=== PATIENT | female | born 1990 | race Two or more races ===

== ENCOUNTER 2019-06-10 06:12 | Emergency (ER) | payer SELFPAY ==
[2019-06-10 06:32] LABS: BILIRUBIN,URINE NEGATIVE (NEGATIVE); GLUCOSE, URINE (UA) NEGATIVE (NEGATIVE); KETONES,URINE (UA) NEGATIVE (NEGATIVE); LEUKOCYTE ESTERASE, URINE NEGATIVE (NEGATIVE); NITRITE,URINE NEGATIVE (NEGATIVE); OCCULT BLOOD,URINE LARGE (NEGATIVE); PH,URINE 5.5 PH (5.0-7.5); PROTEIN,URINE NEGATIVE (NEGATIVE); UROBILINOGEN,URINE 0.2 (NORMAL) E.U./dL (NORMAL)
[2019-06-10 06:33] LABS: CLARITY,URINE CLEAR (CLEAR)
[2019-06-10 06:34] LABS: HCG UR QUAL NEGATIVE
[2019-06-10 06:38] LABS: BACTERIA,URINE Few /HPF (None Seen); MUCUS,URINE Marked Strands; SQUAMOUS EPITHELIAL CELL,UR MANY Squamous (<= Few)
[2019-06-10 06:53] LABS: BASOPHILS # (AUTO) 0.1 10^3/uL (0.0-0.1); BASOPHILS % (AUTO) 1.2 %; EOSINOPHILS # (AUTO) 0.5 10^3/uL (0.0-0.7); EOSINOPHILS % (AUTO) 5.3 %; HGB - HEMOGLOBIN 9.6 g/dL (12.0-16.0); LYMPHOCYTES # (AUTO) 1.6 10^3/uL (1.5-3.5); LYMPHOCYTES % (AUTO) 18.9 %; MEAN PLATELET VOLUME 11.7 fL (7.9-10.8); MONOCYTES # (AUTO) 0.6 10^3/uL (0.0-1.0); MONOCYTES % (AUTO) 7.2 %; NEUTROPHILS # (AUTO) 5.7 10^3/uL (1.5-6.6); NEUTROPHILS % (AUTO) 67.2 %; PLT - PLATELET COUNT 363 10^3/uL (130-450); RED BLOOD COUNT 4.57 10^6/uL (4.20-5.40); RED CELL DISTRIBUTION WIDTH 18.3 % (12.0-15.0); WHITE BLOOD COUNT 8.5 x10^3/uL (4.8-10.8)
[2019-06-10 07:09] LABS: ALBUMIN/GLOBULIN RATIO 1.1 (1.0-2.2); BILIRUBIN,TOTAL 0.7 mg/dL (0.2-1.0); CALCIUM 8.6 mg/dL (8.5-10.3); CREATININE 0.8 mg/dL (0.4-1.0); TOTAL PROTEIN 7.6 g/dL (6.7-8.2)
--- NOTE | 2019-06-10 07:09 | ED Physician Documentation ---
History of Present Illness - Stated complaint Stated Complaint: SIDE PX/VOMITING - Chief complaint Chief Complaint: Abd Pain - Additonal information Additional information: This is a 28-year-old female who presents with left-sided abdominal pain which is now resolved. Patient woke up this morning and she developed some sharp pain in the left side that radiated down towards her front of her abdomen. She did have some nausea and vomiting associated with this. Her symptoms have now resolved, and she is feeling much better. She states she has a history of known gallstones, but denies any pain in right upper quadrant. No fever. Review of Systems Constitutional: denies: Fever Nose: denies: Rhinorrhea / runny nose Cardiac: denies: Chest pain / pressure Respiratory: denies: Dyspnea GI: reports: Abdominal Pain, Nausea, Vomiting : denies: Dysuria Skin: denies: Rash PD PAST MEDICAL HISTORY - Past Medical History Past Medical History: No Cardiovascular: None Respiratory: None Neuro: None Endocrine/Autoimmune: None GI: None PRODUCT SUPPORT REPRESENTATIVE: None : None HEENT: None Psych: None Musculoskeletal: None Derm: None - Past Surgical History Past Surgical History: No - Present Medications Home Medications: Ambulatory Orders Medication Instructions Recorded Confirmed No Known Home Medications 06/10/19 06/10/19 - Allergies Allergies/Adverse Reactions: Allergies Allergy/AdvReac Type Severity Reaction Status Date / Time No Known Drug Allergies Allergy Verified 06/10/19 06:24 - Social History Does the pt smoke?: No Smoking Status: Never smoker Does the pt drink ETOH?: No Does the pt have substance abuse?: No - Immunizations Immunizations are current?: No - POLST Patient has POLST: No PD ED PE NORMAL - Vitals Vital signs reviewed: Yes - General General: Alert and oriented X 3, No acute distress - HEENT HEENT: PERRL - Neck Neck: Supple, no meningeal sign - Cardiac Cardiac: RRR, No murmur - Respiratory Respiratory: Clear bilaterally - Abdomen Abdomen: Normal bowel sounds, Soft, Non tender, Non distended - Derm Derm: Warm and dry - Extremities Extremities: No deformity - Neuro Neuro: Alert and oriented X 3 - Psych Psych: Normal mood, Normal affect Results - Vitals Vitals: Vital Signs - 24 hr 06/10/19 06/10/19 06:21 07:28 Temperature 36.7 C Heart Rate 58 L 70 Respiratory 17 15 Rate Blood Pressure 118/77 112/77 O2 Saturation 100 100 Oxygen O2 Source Room air - Labs Labs: Laboratory Tests 06/10/19 06/10/19 06/10/19 06:30 06:40 06:40 WBC 8.5 RBC 4.57 Hgb 9.6 L Hct 32.0 L MCV 70.0 L MCH 21.0 L MCHC 30.0 L RDW 18.3 H Plt Count 363 MPV 11.7 H Neut # (Auto) 5.7 Lymph # (Auto) 1.6 [place] # (Auto) 0.6 Eos # (Auto) 0.5 Baso # (Auto) 0.1 Absolute Nucleated RBC 0.00 Nucleated RBC % 0.0 Sodium 138 Potassium 3.8 Chloride 105 Carbon Dioxide 25 Anion Gap 8.0 BUN 10 Creatinine 0.8 Estimated GFR (MDRD) 85 L Glucose 97 Calcium 8.6 Total Bilirubin 0.7 AST 19 ALT 13 Alkaline Phosphatase 53 Total Protein 7.6 Albumin 4.0 Globulin 3.6 Albumin/Globulin Ratio 1.1 Lipase 28 Urine Color YELLOW Urine Clarity CLEAR Urine pH 5.5 Ur Specific [place] >=1.030 H Urine Protein NEGATIVE Urine Glucose (UA) NEGATIVE Urine Ketones NEGATIVE Urine Occult Blood LARGE H Urine Nitrite NEGATIVE Urine Bilirubin NEGATIVE Urine Urobilinogen 0.2 (NORMAL) Ur Leukocyte Esterase NEGATIVE Urine RBC 6-10 H Urine WBC 0-3 Ur Squamous Epith Cells MANY Squamous H Urine Bacteria Few Urine Mucus Marked Strands Ur Microscopic Review INDICATED Urine Culture Comments NOT INDICATED Urine HCG, Qual NEGATIVE - Rads (name of study) CT abd/pelvis Radiology: Other (No acute abnormalities, there is cholelithiasis. No appendicitis, no ovarian masses.) PD MEDICAL DECISION MAKING - ED course Complexity details: considered differential (UTI, nephrolithiasis, gastroenteritis, diverticulitis, ovarian torsion, appendicitis, cholecystitis) ED course: On my examination patient is well-appearing with a benign abdominal exam. Her labs are unrevealing with no LFT elevations, no leukocytosis. Her urine does show some red blood cells, no signs of infection. CT of the abdomen/pelvis shows a nonobstructing punctuate left nephrolithiasis, and a small stone which is thought to be potentially a phlebolith just posterior to the bladder. I reevaluated the patient who is feeling well, has no further pain or nausea, Is tolerating p.o., and has stable vital signs. I discussed the results of her studies, explained that I do not have a clear extension for her symptoms, however given the acuity of the pain that then completely resolved is possible that she passed a kidney stone. Given that there are no ovarian masses seen, the pain is resolved, I doubt ovarian torsion, but I discussed that if her pain returns or she is a having other concerning symptoms she should return for reevaluation. I also discussed that she is cholelithiasis, but she has no right upper quadrant tenderness today, no signs of cholecystitis. I further discussed her anemia and recommended follow-up with the primary care provider. Patient agrees and was discharged home in the care of her father. Departure - Departure Disposition: Home, Self Care Clinical Impression: Abdominal pain Qualifiers: Abdominal location: left lower quadrant Qualified Code(s): R10.32 - Left lower quadrant pain Condition: Good Instructions: ED Abdominal Pain Unkn Cause Follow-Up: Madiha Sosa PA-C [Primary Care Provider] - Comments: You were seen today for abdominal pain. Your urine test did show some red blood cells, which may be due to a kidney stone which may now be passed. Your CT scan did not show an obvious cause of your pain today. You do have gallstones, and you should follow-up with a surgeon to discuss removal of your gallbladder. You also have an anemia, and should follow-up with your primary care provider on this. If you are having worsening pain, persistent vomiting, or other concerning symptoms please return to the emergency department. Discharge Date/Time: 06/10/19 08:21
[2019-06-10] MEDS ORDERED: KETOROLAC 30 MG/ML VIAL IVP STA (07:15)
[2019-06-10] MEDS ORDERED: LACTATED RINGERS 1,000 ML IV STA (07:15)
[2019-06-10] MEDS ORDERED: ONDANSETRON 4 MG/2 ML VIAL IVP STA (07:15)
[2019-06-10 07:29] VITALS: BP 112/77
--- NOTE | 2019-06-10 07:34 | CT Report ---
Reason: left flank pain, hematuria Procedure Date: 06/10/2019 Accession Number: [id number] / [id number] Procedure: CT - Abdomen/Pelvis WO CPT Code: Final Report FULL RESULT: EXAM: CT ABDOMEN AND PELVIS (CT KUB) EXAM DATE: 06/10/2019 07:01 AM. CLINICAL HISTORY: Left flank pain, hematuria. COMPARISONS: None. TECHNIQUE: Routine axial helical CT imaging was performed through the abdomen and pelvis without IV contrast. Reconstructions: Coronal and sagittal. In accordance with CT protocol optimization, one or more of the following dose reduction techniques were utilized for this exam: automated exposure control, adjustment of mA and/or KV based on patient size, or use of iterative reconstructive technique. FINDINGS: Lung Bases: Unremarkable. Right Kidney/Ureter: No stones, hydronephrosis, or hydroureter. No perinephric fat stranding. Left Kidney/Ureter: There is a punctate nonobstructing nephrolith in the midpole left kidney. No hydronephrosis. No left ureteral calculi. Other Solid Organs: Noncontrast images of the solid organs are grossly unremarkable. Gallbladder/Bile Ducts: Several gallstones noted, the largest measuring 2.3 cm. Peritoneal Cavity: No free fluid, free air or nelly adenopathy. Bowel is grossly unremarkable. No evidence of appendicitis. Pelvic Organs: No bladder stones or wall thickening. Noncontrast images of the visualized pelvic organs are unremarkable. The urinary bladder is empty, somewhat limiting evaluation. There is a 2 mm calculus midline lower pelvis that appears to be caudal to the empty urinary bladder and suspected to be a phlebolith. Vasculature: Unremarkable. Other: None. IMPRESSION: No right-sided urinary tract stones or obstruction. Punctate nonobstructing left nephrolith. No evidence of appendicitis. No cystic or mass lesions detected in either adnexa. There is a 2 mm calculus midline lower pelvis, that appears to be caudal to the empty urinary bladder and suspected to be a phlebolith. [facility]
== END 2019-06-10 08:21 | disposition home or self-care (01) ==
LOC: ED 06:12
DX: R10.32 Left lower quadrant pain (principal); K80.20 Calculus of gallbladder without cholecystitis without obstruction; D64.9 Anemia, unspecified
CPT/HCPCS: 36415; 74176; 80053; 81001; 81025; 83690; 85025; 96374; 99284; J7120; 81003; 87086